=== PATIENT | male | born 1960 | race Caucasian/White ===

== ENCOUNTER 2016-06-16 03:15 | Observation (INO) | payer OTHER ==
[~2016-06-16] VITALS: Ht 177.8 cm; Wt 86.5 kg
[2016-06-16] MEDS ORDERED: OPTIRAY 350 100 ML VIAL HMH IV ONE (03:16)
[2016-06-16] MEDS ORDERED: MORPHINE 4 MG/ML SYR ONE ×3 (04:01→09:07)
[2016-06-16] MEDS ORDERED: ONDANSETRON 4 MG VIAL ONE ×2 (04:01→05:52)
[2016-06-16] MEDS ORDERED: SODIUM CHLORIDE 0.9% 1,000 ML ONE (04:02)
[2016-06-16] MEDS ORDERED: HURRICAINE SPRAY TOPICAL ONE (07:09)
[2016-06-16] MEDS ORDERED: SALINE FLUSH 10 ML FLUSH PRN (08:30)
[2016-06-16] MEDS: LACT RINGERS 1,000 ML IV SCH ×2 (10:05→18:19)
[2016-06-16] MEDS: FAMOTIDINE 20 MG INJ IV SCH ×2 (10:17→19:56)
[2016-06-16 10:56] VITALS: BP_SYST 168; RESP 16; TEMP 98.1; Ht 177.8 cm; Wt 86.5 kg
[2016-06-16] MEDS: MORPHINE 2 MG/ML SYR IV PRN (11:06)
[2016-06-16] MEDS: MORPHINE 4 MG/ML SYR IV PRN ×5 (13:17→22:03)
[2016-06-16 15:09] VITALS: BP_SYST 156; RESP 16; TEMP 98.3
[2016-06-16] MEDS: ONDANSETRON 4 MG VIAL IV PUSH PRN ×2 (15:24→22:03)
[2016-06-16 19:53] VITALS: BP_SYST 157; RESP 16; TEMP 97.6
[2016-06-16] MEDS: SALINE FLUSH 10 ML FLUSH SCH (19:57)
[2016-06-16 23:26] VITALS: BP_SYST 140; RESP 16; TEMP 98.4
[2016-06-17] MEDS: MORPHINE 4 MG/ML SYR IV PRN ×4 (00:30→07:34)
[2016-06-17] MEDS: LACT RINGERS 1,000 ML IV SCH ×3 (03:28→22:18)
[2016-06-17 04:05] VITALS: BP_SYST 143; RESP 16; TEMP 97.4
[2016-06-17] MEDS: ONDANSETRON 4 MG VIAL IV PUSH PRN ×2 (04:53→11:47)
[2016-06-17] MEDS: FAMOTIDINE 20 MG INJ IV SCH ×2 (07:34→21:03)
[2016-06-17] MEDS: SALINE FLUSH 10 ML FLUSH SCH ×2 (07:34→20:00)
[2016-06-17 07:38] VITALS: BP_SYST 139; RESP 16; TEMP 98.2
[2016-06-17] MEDS: MORPHINE 2 MG/ML SYR IV PRN ×2 (09:58→23:19)
[2016-06-17 11:28] VITALS: BP_SYST 146; RESP 16; TEMP 97.9
[2016-06-17] MEDS: OXYCODONE 5 MG TAB PO PRN ×3 (11:49→21:08)
[2016-06-17] MEDS ORDERED: CHLORASEPTIC 180 ML BTL PO PRN (12:50)
[2016-06-17 15:19] VITALS: BP_SYST 142; RESP 16; TEMP 98
[2016-06-17 19:56] VITALS: BP_SYST 142; RESP 16; TEMP 98.3
[2016-06-17 23:30] VITALS: BP_SYST 147; RESP 16; TEMP 98.1
[2016-06-18] MEDS: OXYCODONE 5 MG TAB PO PRN ×3 (01:25→14:18)
[2016-06-18] MEDS: MORPHINE 2 MG/ML SYR IV PRN ×2 (03:32→09:47)
[2016-06-18 03:58] VITALS: BP_SYST 148; RESP 16; TEMP 98.2
[2016-06-18] MEDS: LACT RINGERS 1,000 ML IV SCH (06:22)
[2016-06-18 07:31] VITALS: BP_SYST 154; RESP 16; TEMP 98
[2016-06-18] MEDS: FAMOTIDINE 20 MG INJ IV SCH (07:45)
[2016-06-18] MEDS: SALINE FLUSH 10 ML FLUSH SCH (07:46)
[2016-06-18 10:52] VITALS: BP_SYST 134; RESP 18; TEMP 98.2
[2016-06-18 15:30] VITALS: BP_SYST 134; RESP 18; TEMP 98.2
[2016-06-18 15:44] VITALS: BP_SYST 154; RESP 16; TEMP 98.3
== END 2016-06-18 14:58 | disposition home or self-care (01) ==
LOC: ENRESERVDT → ENRESERVTM → ER 03:15 → EMR 08:27 → 5THW 09:49
PROVIDERS: ADMIT Surgery; ATTEND Surgery
DX: R10.9 Unspecified abdominal pain (principal); R11.2 Nausea with vomiting, unspecified; R93.5 Abnormal findings on diagnostic imaging of other abdominal regions, including retroperitoneum; R14.3 Flatulence; E11.9 Type 2 diabetes mellitus without complications; Z79.82 Long term (current) use of aspirin; Z87.891 Personal history of nicotine dependence; Z98.84 Bariatric surgery status; Z96.653 Presence of artificial knee joint, bilateral
CPT/HCPCS: 36415; 74020; 74022; 74177; 80048; 80053; 81003; 83605; 83690; 85025; 96361; 96374; 96375; 96376